=== PATIENT | male | born 1970 | race African-American/Black ===

== ENCOUNTER 2023-03-23 19:11 | Emergency (ER) | payer OTHER, SELFPAY ==
--- NOTE | ~2023-03-23 | US_ITS ---
EXAMINATION: US venous doppler [facility] DATE: 03/23/2023 20:27 INDICATION: left calf pain . TECHNIQUE: Grayscale images without and with compression and Doppler images of the left lower extremi ty veins were obtained. COMPARISON: None FINDINGS: The left common femoral vein, profunda (deep) femoral vein, femoral vein, popliteal vein, peroneal v ein, posterior tibial veins, gastrocnemius vein, and greater saphenous vein are patent. IMPRESSION: 1. Patent left lower extremity veins. No evidence of deep venous thrombosis. Reviewed, dictated and finalized at location K.
[2023-03-23 19:21] VITALS: BP 142/113; PULSE 75; RESP 18; TEMP 35.9; O2SAT 98
[2023-03-23 19:54] LABS: Basophils Percent Auto 0.5 % (0.2-1.2); Eosinophils Absolute Auto 0.1 K/mm3 (0-0.3); Eosinophils Percent Auto 1.9 % (0-4.4); Hematocrit 44.4 % (42.0-52.0); Hemoglobin 14.5 g/dL (14.0-18.0); Immature Granulocyte Absolute 0.01 K/mm3 (0.00-0.031); Immature Granulocyte Percent A 0.2 % (0-0.5); Lymphocytes Absolute Auto 2.22 K/mm3 (0.9-3.2); Lymphocytes Percent Auto 37.4 % (18.3-44.2); Mean Corpuscular HGB Conc 32.7 g/dl (32-36); Mean Corpuscular Hemoglobin 30.9 pg (26-34); Mean Corpuscular Volume 94.5 fl (80-100); Mean Platelet Volume 9.9 fl (7.4-10.4); Monocytes Absolute Auto 0.6 K/mm3 (0.1-0.6); Monocytes Percent Auto 10.8 % (2.6-8.5); Neutrophils Absolute Auto 2.9 K/mm3 (1.3-6.7); Neutrophils Percent Auto 49.2 % (45.5-73.1); Platelet Count Result 259 k/mm3 (150-375); Red Cell Distribution Width 11.8 % (11.5-14.5); White Blood Count 5.9 K/mm3 (4.5-10.0)
[2023-03-23 20:02] LABS: Anion Gap 6 mmol/L (8-16); Blood Urea Nitrogen 15 mg/dL (9-20); Calcium 8.8 mg/dL (8.4-10.2); Carbon Dioxide 31 mmol/L (22-30); Chloride 105 mmol/L (98-107); Estimated CRCL calculation 84 ml/min; Estimated Glomerular Filt Rate > 60; Glucose 94 mg/dL (65-110); Potassium 4.4 mmol/L (3.4-5.0); Sodium 142 mmol/L (137-145)
[2023-03-23 20:06] LABS: INR 0.9; Prothrombin Time 12.6 Seconds (11.1-14.7)
[2023-03-23 20:07] LABS: Partial Thromboplastin Time 34.4 SECONDS (22.3-36.8)
--- NOTE | 2023-03-23 21:21 | ED.EXTPRO ---
HPI - Extremity Problem General Chief complaint: Extremity Problem,Nontraumatic Stated complaint: LLE swelling/warmth Time Seen by Provider: 03/23/23 21:01 Source: patient Mode of arrival: ambulatory Limitations: no limitations History of Present Illness HPI Narrative: Patient is a 52-year-old male with history of hypertension presenting to the emergency department for evaluation of left calf pain. Patient reports a 2-week history of worsening left calf pain and mild lower extremity swelling. Patient reports no recent trauma but states that he undergoes frequent workouts and exertional activity. No fall or injury. Patient states he has been taking Aleve without improvement in his symptoms. He denies any rash, bruising. No numbness in the lower extremities. He has been ambulatory. He denies any frontal knee pain or bony pain. He does report increased pain with movement. He denies any chest pain, pleuritic pain, shortness of breath, cough or hemoptysis. No fever, chills, nausea or vomiting. Patient denies hip pain. Patient without history of coagulopathy. He does have a history of G6PD deficiency. Review of Systems Review of Systems: CONSTITUTIONAL: Denies fever, chills, or sweats. EYES: Denies visual changes, redness, or discharge. ENT: Denies rhinorrhea, congestion, sore throat, or otalgia. CARDIOVASCULAR: Denies chest pain, palpitations, or edema. RESPIRATORY: Denies cough or dyspnea. GASTROINTESTINAL: Denies abdominal pain, nausea, vomiting, or diarrhea. GENITOURINARY: Denies dysuria or hematuria. SKIN: Denies rash or itching. MUSCULOSKELETAL: Denies back pain, joint pain, reports left calf pain NEUROLOGIC: Denies headache, numbness, or weakness. [facility] Past Medical History Medical History (Updated 03/23/23 @ 21:30 by Beata Orr MD) G6PD deficiency Hypertension Surgical History Surgical History (Updated 03/23/23 @ 21:24 by Beata Orr MD) No pertinent past surgical history Social History Social History (Updated 03/23/23 @ 21:24 by Beata Orr MD) Smoking status: Never smoker Substance use: never Gender identity (if verbalized by the patient): Male Exam Narrative: GENERAL: Awake, alert, conversant HEAD: Normocephalic, atraumatic. EYES: PERRLA and EOMI. ENT: Nares clear, no rhinorrhea or epistaxis. Mucous membranes moist. NECK: Supple. CHEST: No respiratory distress, breathing even and non labored HEART: Regular rate, sinus rhythm ABDOMEN:Non distended, non tender EXTREMITIES: Normal range of motion. No significant lower extremity edema. No pitting edema. No erythema. Mild tenderness with palpation of the left calf without ecchymosis, induration, erythema. Patient with mild pain with flexion and extension. No anterior left knee pain. Patella is midline, no effusion, erythema edema or crepitus. No pain with flexion or extension of the left knee. DP pulses 2+ bilaterally. Posterior tibialis pulse 2+. Intact distal sensation. Compartments are soft SKIN: Warm, dry, no rash. NEURO:No focal deficits. Alert and oriented x3 Course Vital Signs Vital signs: Vital Signs Temperature 35.9 C L 03/23/23 19:21 Pulse Rate 75 03/23/23 19:21 Respiratory Rate 18 03/23/23 19:21 Blood Pressure 142/113 H 03/23/23 19:21 Pulse Oximetry 98 03/23/23 19:21 Oxygen Delivery Room Air 03/23/23 19:21 Temperature 35.9 C L 03/23/23 19:21 Pulse Rate 75 03/23/23 19:21 Respiratory Rate 18 03/23/23 19:21 Blood Pressure 142/113 H 03/23/23 19:21 Pulse Oximetry 98 03/23/23 19:21 Oxygen Delivery Room Air 03/23/23 19:21 MDM - Extremity (Nontraumatic) MDM Narrative Medical decision making narrative: Medical decision making narrative: -Presentation: Patient presenting for evaluation of atraumatic left posterior calf pain over the past 2 weeks. Patient has been taking anti-inflammatories with out significant improvement in his symptoms. On exam, abhay
[2023-03-23 21:39] VITALS: BP 135/99; PULSE 71; RESP 16; O2SAT 98
== END 2023-03-23 21:40 | disposition home or self-care (01) ==
PROVIDERS: Emergency Provider Emergency Medicine
DX: S86.912A Strain of unspecified muscle(s) and tendon(s) at lower leg level, left leg, initial encounter (principal); I10 Essential (primary) hypertension; D75.A Glucose-6-phosphate dehydrogenase (G6PD) deficiency without anemia; X58.XXXA Exposure to other specified factors, initial encounter
CPT/HCPCS: 36415; 80048; 85025; 85610; 85730; 93971; 99284